=== PATIENT | female | born 1940 | race Two or more races ===

== ENCOUNTER 2022-06-10 11:25 | Emergency (ER) | payer MEDICARE ==
[~2022-06-10] VITALS: Ht 167.6 cm; Wt 74.8 kg
--- NOTE | 2022-06-10 11:40 | NUR ---
LEFT WRIST AND ORAL PAIN/INJURY,GLF WHILE WALKING IN SIDEWALK
--- NOTE | 2022-06-10 11:50 | NUR ---
AT BED SIDE FOR EVAL
[2022-06-10] MEDS ORDERED: ACETAMINOPHEN ES 500 MG TABLET ONE (11:58)
[2022-06-10] MEDS ORDERED: ACETAMINOPHEN ES 500 MG TABLET PO ONE (12:00)
--- NOTE | 2022-06-10 13:34 | NUR ---
PT TAKEN TO CT
[2022-06-10] MEDS ORDERED: HYDR-4303 PO (13:47)
--- NOTE | 2022-06-10 14:09 | NUR ---
SPLINT PLACED BY EMT AT BEDSIDE
[2022-06-10 14:10] VITALS: BP 151/58
--- NOTE | 2022-06-10 14:10 | NUR ---
Patient discharged to home in stable condition. Written and verbal after care instructions given. Patient verbalizes understanding of instruction.
== END 2022-06-10 14:28 | disposition home or self-care (01) ==
LOC: ER 12:30
DX: S52.512A Displaced fracture of left radial styloid process, initial encounter for closed fracture (principal); R51.9 Headache, unspecified; M54.2 Cervicalgia; W01.0XXA Fall on same level from slipping, tripping and stumbling without subsequent striking against object, initial encounter; Y93.89 Activity, other specified; Y92.480 Sidewalk as the place of occurrence of the external cause; Y99.8 Other external cause status
CPT/HCPCS: 70450-TC; 72125-TC; 73110